=== PATIENT | female | born 1985 | race Caucasian/White ===

== ENCOUNTER 2019-02-05 05:47 | Emergency (ER) | payer SELFPAY ==
[~2019-02-05] VITALS: Ht 167.6 cm; Wt 79.4 kg
[2019-02-05 06:00] VITALS: BP_SYST 146
--- NOTE | 2019-02-05 06:00 | NUR ---
Patient to ER bed 8 to gown for evaluation. Side rails up.
--- NOTE | 2019-02-05 06:13 | NUR ---
Pt BIB best friend to ED C/O L Ankle pain since ealier last night. Pt is a poor historian, unable to provide meaningful info. Pain is currently 02/14. No other significant Med Hx, injuries and or complaints noted at this time. VSS no s/s of acute distress. Resting on gurney with rails up
--- NOTE | 2019-02-05 06:15 | NUR ---
Dr. Elias bedside for Pt eval
--- NOTE | 2019-02-05 06:25 | NUR ---
Pt states she refuses any type of shots; would much prefer oral medication
[2019-02-05] MEDS ORDERED: IBUPROFEN 600 MG TABLET PO ONE (06:30)
[2019-02-05] MEDS ORDERED: CLINDAMYCIN HCL 150 MG CAPSULE PO ONE (06:30)
[2019-02-05 06:45] VITALS: BP_SYST 142
--- NOTE | 2019-02-05 06:45 | NUR ---
Patient given written and verbal discharge instructions and verbalizes understanding. ER MD discussed with patient the results and treatment provided. Patient in stable condition. ID arm band removed. Rx of Ibprofen and Cleocin given. Patient educated on pain management and to follow up with PMD. Pain Scale 0/10. Opportunity for questions provided and answered. Medication side effect fact sheet provided.
== END 2019-02-05 06:45 | disposition home or self-care (01) ==
LOC: SED 05:47
DX: L03.116 Cellulitis of left lower limb (principal); R22.42 Localized swelling, mass and lump, left lower limb; F17.200 Nicotine dependence, unspecified, uncomplicated
CPT/HCPCS: 99283